=== PATIENT | male | born 1980 | race Caucasian/White ===

== ENCOUNTER 2020-09-14 00:44 | Emergency (ER) | payer MEDICAID ==
[~2020-09-14] VITALS: Ht 198.1 cm; Wt 150.0 kg
--- NOTE | 2020-09-14 02:10 | NUR ---
PATIENT RESTING IN BED, VITAL SIGNS STABLE. NO NOTED NEEDS AT THIS TIME. WILL CONTINUE TO MONITOR.
--- NOTE | 2020-09-14 03:21 | NUR ---
PATIENT RESTING IN BED, TOLERATING INTERVENTIONS WELL. PATIENT WILL AWAKEN WITH VERBAL STIMULI. PATIENT DOES NOT MEET SAFE DISCHARGE CRITERIA AT THIS TIME. VITAL SIGNS STABLE, WILL CONTINUE TO MONITOR.
--- NOTE | 2020-09-14 04:39 | NUR ---
PATIENT RESTING IN BED, NO NOTED NEEDS AT THIS TIME. WILL CONTINUE TO MONITOR.
--- NOTE | 2020-09-14 04:45 | NUR ---
bedside report from [facility], pt care transferred at this time.
--- NOTE | 2020-09-14 04:45 | NUR ---
REPORT GIVEN TO YEIMI PATEL
[2020-09-14 05:27] VITALS: BP 118/64
--- NOTE | 2020-09-14 05:28 | NUR ---
Patient given discharge instructions and they have confirmed that they understand the instructions. Patient ambulatory with steady gait. NAD, DENIES ADDITIONAL QUESTIONS OR NEEDS, STATES HE WILL CALL [facility] OR [facility] FOR SELF BACK TO [facility]. NO PERSONAL BELONGINGS LEFT IN ROOM AFTER DC
== END 2020-09-14 05:29 | disposition home or self-care (01) ==
LOC: ED 01:14
DX: F10.120 Alcohol abuse with intoxication, uncomplicated (principal); Z72.9 Problem related to lifestyle, unspecified; Y90.0 Blood alcohol level of less than 20 mg/100 ml
CPT/HCPCS: 99285